=== PATIENT | male | born 2000 | race Caucasian/White ===

== ENCOUNTER 2019-06-05 07:11 | Emergency (ER) | payer OTHER ==
[2019-06-05] MEDS: ACETAMINOPHEN 500 MG TAB PO (07:44)
== END 2019-06-05 08:48 | disposition home or self-care (01) ==
LOC: FTE 08:48
DX: S40.011A Contusion of right shoulder, initial encounter (principal); F07.81 Postconcussional syndrome; R41.82 Altered mental status, unspecified; W10.9XXA Fall (on) (from) unspecified stairs and steps, initial encounter; Y92.9 Unspecified place or not applicable
CPT/HCPCS: 70450; 71045; 73000; 73030-RT; 99284-25